=== PATIENT | female | born 1955 | race Caucasian/White ===

== ENCOUNTER 2024-06-23 15:35 | Observation (INO) ==
--- NOTE | 2024-06-23 16:50 | DR.GENAD ---
HPI Time Seen Time Seen by Provider: 06/23/24 16:49 PCP Primary Care Physician: Dr. Arce Complaint/Symptoms Chief Complaint:: Pt c/o generalized weakness and frequent falls. Pt c/o left hip pain. Pt was recently discharged from [facility] after 21 days of rehab. Pt returned to her brother's house to stay with him and reports that the brother moved her to a camper to stay alone in. Pt was found in the camper alone, naked, and covered in urine with pills spread all over the floor of the camper. Pt is noted to have redness to the back of the left upper arm and sacrum that pt states is due to her laying in urine. Pt states that she hasn't had a bath in 2 weeks. COVID-19 Coronavirus risk:travel/contact w/high risk person: No Has patient experienced Coronavirus symptoms: No Nurses notes reviewed Nurses Notes Review: Yes Source History Provided: Patient and EMS Mode of Arrival Mode of Arrival: Ambulatory Timing Onset of Chief Complaint: 06/23/24 PMH PMH Past Medical History: Yes Past Medical History: COPD, Dyslipidemia, Hypertension, Seizures and Sleep Apnea Past Surgical History: Yes Surgical History: , Hysterectomy, Ortho Surgery and Other Past Surgical History Comment: bladder tact Family History History of Family Medical Conditions: Yes Family Medical History: Diabetes Mellitus, Cancer, [place], Coronary Artery Disease and Hypertension Social History Does patient currently use any type of tobacco product: Yes Have you used tobacco products in the last 12 months: Yes Type of Tobacco Use: Cigarettes Does any household member use tobacco: No Alcohol Use: None Do you use any recreational Drugs:: No Lives With: Family Lives Where: Home Travel Risk Coronavirus risk:travel/contact w/high risk person: No Has patient experienced Coronavirus symptoms: No Infectious screening In the last 2 months have you had wt loss of >10#?: NO Have you had fever, night sweats or hemotysis?: No Have you traveled outside the country in the last 6 months?: No Isolation: Standard PE Vital Signs Vitals: Vital Signs Temperature 98.0 F Pulse Rate 105 Pulse Rate 117 Pulse Rate 110 Pulse Rate 115 Pulse Rate 126 Pulse Rate 128 Pulse Rate 124 Pulse Rate 140 Pulse Rate 129 Pulse Rate 130 Pulse Rate 128 Pulse Rate 125 Pulse Rate 121 Pulse Rate 120 Pulse Rate 117 Pulse Rate 121 Pulse Rate 113 Pulse Rate 121 Pulse Rate 112 Pulse Rate 120 Pulse Rate 117 Respiratory Rate 29 Respiratory Rate 28 Respiratory Rate 39 Respiratory Rate 41 Respiratory Rate 29 Respiratory Rate 43 Respiratory Rate 29 Respiratory Rate 35 Respiratory Rate 39 Respiratory Rate 43 Respiratory Rate 39 Respiratory Rate 30 Respiratory Rate 28 Respiratory Rate 46 Respiratory Rate 20 Respiratory Rate 24 Respiratory Rate 31 Respiratory Rate 28 Respiratory Rate 32 Respiratory Rate 20 Respiratory Rate 20 Respiratory Rate 22 Blood Pressure 96/53 Blood Pressure 98/56 Blood Pressure 82/54 Blood Pressure 82/54 Blood Pressure 107/58 Blood Pressure 107/58 Blood Pressure 115/58 Blood Pressure 113/57 Blood Pressure 135/57 Blood Pressure 127/59 Blood Pressure 118/81 Blood Pressure 124/81 Blood Pressure 124/81 O2 Sat by Pulse Oximetry 95 O2 Sat by Pulse Oximetry 96 O2 Sat by Pulse Oximetry 90 O2 Sat by Pulse Oximetry 91 O2 Sat by Pulse Oximetry 93 O2 Sat by Pulse Oximetry 93 O2 Sat by Pulse Oximetry 91 O2 Sat by Pulse Oximetry 88 O2 Sat by Pulse Oximetry 90 O2 Sat by Pulse Oximetry 90 O2 Sat by Pulse Oximetry 91 O2 Sat by Pulse Oximetry 93 O2 Sat by Pulse Oximetry 93 O2 Sat by Pulse Oximetry 90 O2 Sat by Pulse Oximetry 95 O2 Sat by Pulse Oximetry 95 O2 Sat by Pulse Oximetry 96 O2 Sat by Pulse Oximetry 95 O2 Sat by Pulse Oximetry 100 O2 Sat by Pulse Oximetry 100 O2 Sat by Pulse Oximetry 99 ROR Labs Reviewed 06/23/24 17:13 06/23/24 17:13 Laboratory: WBC 20.2 X10^3/uL (3.6-10.0) H 06/23/24 17:13 RBC 4.32 X10^6/uL (3.5-5.4) 06/23/24 17:13 Hgb 13.2 g/dL (12.0-16.0) 06/23/24 17:13 Hct 38.8 % (36.0-47.0) 06/23/24 17:13 MCV 89.9 fL (80.0-100.0) 06/23/24 17:13 MCH 30.4 pg (27.0-34.0) 06/23/24 17:13 MCHC 33.9 g/dL (33.0-35.0) 06/23/24 17:13 RDW 17.1 % (11.6-16.5) H 06/23/24 17:13 Plt Count 320 X10^3/uL (150.0-450.0) 06/23/24 17:13 MPV 8.3 fL (7.4-11.0) 06/23/24 17:13 Neut % (Auto) 87.0 % (42.0-75.0) H 06/23/24 17:13 Lymph % (Auto) 6.0 % (21.0-51.0) L 06/23/24 17:13 [place] % (Auto) 6.6 % (0.0-13.0) 06/23/24 17:13 Eos % (Auto) 0.0 % (0.9-2.9) L 06/23/24 17:13 Baso % (Auto) 0.4 % (0.2-1.0) 06/23/24 17:13 Neut # (Auto) 17.6 x10^3/uL (2.2-4.8) H 06/23/24 17:13 Lymph # (Auto) 1.2 X10^3/uL (1.3-2.9) L 06/23/24 17:13 [place] # (Auto) 1.3 x10^3/uL (0.3-0.8) H 06/23/24 17:13 Eos # (Auto) 0.0 x10^3/uL (0.0-0.2) 06/23/24 17:13 Baso # (Auto) 0.1 X10^3/uL (0.0-0.1) 06/23/24 17:13 Absolute Nucleated RBC 0.0 /100WBC 06/23/24 17:13 Sodium 131 mmol/L (136-145) L 06/23/24 17:13 Corrected Sodium TNP 06/23/24 17:13 Potassium 3.7 mmol/L (3.5-5.1) 06/23/24 17:13 Chloride 93 mmol/L (98-107) L 06/23/24 17:13 Carbon Dioxide 32.1 mmol/L (21-32) H 06/23/24 17:13 BUN 10 mg/dL (7-18) 06/23/24 17:13 Creatinine 0.61 mg/dL (0.55-1.02) 06/23/24 17:13 Est GFR (MDRD) Af Amer > 60 (>60) 06/23/24 17:13 Est GFR (MDRD) Non-Af > 60 (>60) 06/23/24 17:13 Glucose 90 mg/dL (65-99) 06/23/24 17:13 Lactic Acid 1.2 mmol/L (0.4-2.0) 06/23/24 18:02 Calcium 8.9 mg/dL (8.5-10.1) 06/23/24 17:13 Corrected Calcium 9.9 mg/dL (8.5-10.1) 06/23/24 17:13 Total Bilirubin 0.60 mg/dL (0.2-1.0) 06/23/24 17:13 AST 19 Units/L (15-37) 06/23/24 17:13 ALT 13 Units/L (12-78) 06/23/24 17:13 Alkaline Phosphatase 101 Units/L (46-116) 06/23/24 17:13 Total Protein 6.9 g/dL (6.4-8.2) 06/23/24 17:13 Albumin 2.8 g/dL (3.4-5.0) L 06/23/24 17:13 Globulin 4.1 g/dL (2.5-4.5) 06/23/24 17:13 Albumin/Globulin Ratio 0.7 Ratio (1.1-2.1) L 06/23/24 17:13 Specimen Type Catherized urine 06/23/24 18:55 Urine Color Yellow (YELLOW) 06/23/24 18:55 Urine Appearance Clear (CLEAR) 06/23/24 18:55 Urine pH 6.0 (5.0 - 8.0) 06/23/24 18:55 Ur Specific [place] 1.020 (1.000-1.030) 06/23/24 18:55 Urine Protein Negative (NEGATIVE) 06/23/24 18:55 Urine Glucose (UA) Negative (NEGATIVE) 06/23/24 18:55 Urine Ketones 2+ (NEGATIVE) 06/23/24 18:55 Urine Blood 1+ (NEGATIVE) 06/23/24 18:55 Urine Nitrite Negative (NEGATIVE) 06/23/24 18: Urine Bilirubin Negative (NEGATIVE) 06/23/24 18:55 Urine Urobilinogen Normal (NORMAL) 06/23/24 18:55 Ur Leukocyte Esterase 2+ (NEGATIVE) 06/23/24 18:55 Urine RBC None seen /HPF (0-3) 06/23/24 18:55 Urine WBC 20-30 /HPF (0-5) A 06/23/24 18:55 Ur Squamous Epith Cells Rare /HPF (NEGATIVE) 06/23/24 18:55 Urine Bacteria Negative /HPF (NEGATIVE) 06/23/24 18:55 Ur Culture Indicated? Yes/culture set up 06/23/24 18:55 Opioid Opioid Risk Tool Age (Edgar box if 16-45): No History of Preadolescent Sexual Abuse: No Total: 0 Total Score Risk Category: Low Risk Copyright: Aryan DERVIES predicting aberrant behaviors Discharge Plan Diagnosis Discharge Problem: Cellulitis of sacral region, Decubitus ulcer, UTI (urinary tract infection) Discharge Plan Patient Disposition: 01 HOME, SELF-CARE Condition: Stable Prescriptions: No Action atorvastatin 10 mg tablet 10 mg PO QDAY montelukast 10 mg tablet 10 mg PO QDAY PRN albuterol sulfate [Ventolin HFA] 90 mcg/actuation HFA aerosol inhaler 1 inh inhalation Q4H PRN potassium chloride 8 mEq Capsule, Extended Release 8 meq PO QDAY Qty: 30 0RF Rx Instructions: Take with Lasix furosemide [Lasix] 20 mg Tablet 20 mg PO QDAY Qty: 30 0RF carvedilol 6.25 mg Tablet 6.25 mg PO BID Qty: 60 0RF oxybutynin chloride 15 mg tablet extended release 24hr 30 mg PO DAILY pregabalin 150 mg capsule 150 mg PO TID Qty: 30 0RF hydrochlorothiazide 12.5 mg capsule 12.5 mg PO QDAY lisinopril 30 mg tablet 30 mg PO QDAY Trelegy Ellipta 200-62.5-25 mcg blister with device 1 ea inhalation QDAY Health Concerns: Post Hospitalization: new medications and changes needed to prevent readmission or further decline. Pt educated and given instructions on all concerns. Plan of Treatment: Continue with present treatment and follow up plan. Pt is to keep follow up appointment as instructed and take medications as ordered. Orders to Discharge Patient Discharge Orders: Transfer (Routine); Ordered 06/23/24 Ordered By: NIDIA HARRIS Follow ups/Referrals Follow ups/Referrals: [facility]FD,None [STAFF PHYSICIAN] - 3 days Instructions Stand Alone Forms: Find Help Web Site, Post Hospital Follow Up Care
[2024-06-23 17:22] LABS: HEMOGLOBIN 13.2 g/dL (12.0-16.0)
[2024-06-23 17:28] LABS: BASOPHILS # (AUTO) 0.1 X10^3/uL (0.0-0.1); BASOPHILS % (AUTO) 0.4 % (0.2-1.0); HEMATOCRIT 38.8 % (36.0-47.0); LYMPHOCYTES # (AUTO) 1.2 X10^3/uL (1.3-2.9); MEAN CORPUSCULAR HEMOGLOBIN 30.4 pg (27.0-34.0); MEAN CORPUSCULAR HGB CONC 33.9 g/dL (33.0-35.0); MEAN CORPUSCULAR VOLUME 89.9 fL (80.0-100.0); MEAN PLATELET VOLUME 8.3 fL (7.4-11.0); MONOCYTES # (AUTO) 1.3 x10^3/uL (0.3-0.8); MONOCYTES % (AUTO) 6.6 % (0.0-13.0); NEUTROPHILS # (AUTO) 17.6 x10^3/uL (2.2-4.8); PLATELET COUNT 320 X10^3/uL (150.0-450.0); RED BLOOD COUNT 4.32 X10^6/uL (3.5-5.4); RED CELL DISTRIBUTION WIDTH 17.1 % (11.6-16.5); WHITE BLOOD COUNT 20.2 X10^3/uL (3.6-10.0)
[2024-06-23] MEDS: TYLENOL 500 MG TAB EXTRA STRENGTH PO ONE ×2 (17:33→22:17)
[2024-06-23 17:35] LABS: ALANINE AMINOTRANSFERASE 13 Units/L (12-78); ALBUMIN 2.8 g/dL (3.4-5.0); ALKALINE PHOSPHATASE 101 Units/L (46-116); ASPARTATE AMINO TRANSFERASE 19 Units/L (15-37); BLOOD UREA NITROGEN 10 mg/dL (7-18); CALCIUM 8.9 mg/dL (8.5-10.1); CARBON DIOXIDE 32.1 mmol/L (21-32); CHLORIDE 93 mmol/L (98-107); COR CA(FOR HYPOALB) 9.9 mg/dL (8.5-10.1); CREATININE 0.61 mg/dL (0.55-1.02); GLUCOSE 90 mg/dL (65-99); POTASSIUM 3.7 mmol/L (3.5-5.1); SODIUM 131 mmol/L (136-145); TOTAL PROTEIN 6.9 g/dL (6.4-8.2); eGFR NON BLACK RACES > 60 (>60)
--- NOTE | 2024-06-23 17:39 | CT ---
EXAM: HEAD CT WITHOUT INTRAVENOUS CONTRASTHISTORY: Generalized weakness and frequent falls. Left hip pain.TECHNIQUE: Spiral axial CT images are obtained through the brain without the administration of intravenous contrast. Additional sagittal and coronal reformatted images are reconstructed.COMPARISON: None available.FINDINGS:There are mild patchy parenchymal lucencies within the white matter tracks of the centrum semiovale, consistent with chronic sequela of atherosclerotic microvascular ischemic disease. Atherosclerosis of the carotid siphons is seen. Consider follow-up MRA as clinically warranted. Nonspecific pineal gland calcification is seen.There is diffuse cerebral cortical atrophy. The centrum semiovale, basal ganglia, cerebellum, and brainstem are otherwise grossly unremarkable for a noncontrast CT scan. There is no acute intracranial hemorrhage, gross acute infarction, mass lesion, midline shift, or hydrocephalus seen. No extra-axial mass or abnormal fluid collection noted.The calvarium is intact. The partially imaged paranasal sinuses, middle ear cavities and mastoid air cells are clear.IMPRESSION:1. Mild chronic microvascular ischemic disease, but no discernible acute infarction seen. Consider followup MRI with diffusion-weighted imaging to rule out occult acute infarction if clinically warranted.2. Atherosclerosis of the carotid siphons is seen. Consider follow-up MRA as clinically warranted.3. No skull fracture, intracranial hemorrhage, mass lesion, midline shift, or hydrocephalus seen.THIS IS AN ELECTRONICALLY VERIFIED FINAL [id number]/2024 5:36 PM - Electronically signed by Saurabh Acosta MD
--- NOTE | 2024-06-23 17:51 | CT ---
EXAM: CT OF THE PELVIS WITHOUT CONTRASTHISTORY: Generalized weakness. Frequent falls. Left hip pain.TECHNIQUE: Spiral axial CT images are obtained through the pelvis, hips, and coccygeal regions. Sagittal and coronal reformatted images are reconstructed.COMPARISON: None available.FINDINGS:The patient is status post ORIF of a left femoral intertrochanteric fracture with medullary nette placement; femoral head component of the hip prosthesis demonstrates chronic appearing cephalad displacement through the weightbearing aspect of the femoral head into the weightbearing aspect of the bony acetabulum (by approximately 1.3 cm deep) with approximately 2.7 cm transverse by 1.9 cm deep by 4 cm AP, chronic, acetabular articular surface bone erosion/scalloping; ununited intertrochanteric fracture moieties (with up to 9.2 mm medial step-off and approximately 7.6 mm posterior step-off of the distal fracture moiety). Coronal image 25-42; sagittal image 19.There is no acute fracture seen. No focal bony erosion is seen. There is severe diffuse osteopenia (presumed osteoporosis). There is an approximately 2.1 cm x 1.4 cm x 1.4 cm sclerotic lesion within the right iliac bone; nonspecific finding; DDx includes bone island and sclerotic metastatic lesion in the appropriate clinical setting. Axial image 23; coronal image 44; sagittal image 7-31.No joint subluxation or dislocation is seen. There is no evidence for osteoarthritis or avascular necrosis of the hips.There is chronic appearing mild (less than 50%) compression fracture of the superior endplate of the L4 vertebral body, without gross bony retropulsion. Sagittal image 59. There is severe aortoiliac atherosclerosis.There is an approximately 6.4 cm transverse by 4.7 cm CC right anterior lower pelvic wall hernia containing an uncomplicated loop of small bowel. Axial image 48; sagittal image 73. Abundant fecal material is seen within the visualized large bowel loops and rectum can consistent with severe constipation. Status post hysterectomy.IMPRESSION:1. Status post ORIF of a left femoral intertrochanteric fracture with medullary nette placement.2. Femoral head component of the hip prosthesis demonstrates chronic appearing cephalad displacement through the weightbearing aspect of the femoral head into the weightbearing aspect of the bony acetabulum (by approximately 1.3 cm deep) with approximately 2.7 cm transverse by 1.9 cm deep by 4 cm AP, chronic, acetabular articular surface bone erosion/scalloping.3. Ununited intertrochanteric fracture moieties (with up to 9.2 mm medial step-off and approximately 7.6 mm posterior step-off of the distal fracture moiety). Coronal image 25-42; sagittal image 19.4. Severe diffuse osteopenia; presumed osteoporosis.5. Chronic appearing mild (less than 50%) compression fracture of the superior endplate of the L4 vertebral body, without gross bony retropulsion. Sagittal image 59.5. Approximately 6.4 cm transverse by 4.7 cm CC right anterior lower pelvic wall hernia containing an uncomplicated loop of small bowel. Axial image 48; sagittal image 73.6. Abundant fecal material is seen within the visualized large bowel loops and rectum can consistent with severe constipation.THIS IS AN ELECTRONICALLY VERIFIED FINAL [id number]/2024 5:48 PM - Electronically signed by Saurabh Acosta MD
[2024-06-23 19:07] LABS: BILIRUBIN,URINE NEGATIVE (NEGATIVE); BLOOD/HEMOGLOBIN,URINE 1+ (NEGATIVE); GLUCOSE, URINE NEGATIVE (NEGATIVE); KETONES,URINE 2+ (NEGATIVE); LEUKOCYTE ESTERASE ,URINE 2+ (NEGATIVE); NITRITES,URINE NEGATIVE (NEGATIVE); PROTEIN,URINE NEGATIVE (NEGATIVE); UROBILINOGEN,URINE NORMAL (NORMAL)
[2024-06-23 19:14] LABS: APPEARANCE,URINE CLEAR (CLEAR); COLOR,URINE YELLOW (YELLOW)
[2024-06-23 19:15] LABS: BACTERIA,URINE NEGATIVE /HPF (NEGATIVE); RBC,URINE NONE SEEN /HPF (0-3); SQUAMOUS EPITHELIAL CELL,UR RARE /HPF (NEGATIVE)
[2024-06-23] MEDS ORDERED: NS 1,000 ML IV 1,000 ML ONE (19:44)
[2024-06-23] MEDS: NS 1,000 ML IV 1,000 ML IV ONE (19:53)
[2024-06-23] MEDS: ZOSYN VIAL 3.375 GRAMS 3.375 G in NS 100 ML IV 100 ML IV ONE (20:01)
[2024-06-23] MEDS: NS 250 ML IV 25 ML IV PRN (20:02)
[2024-06-23] MEDS ORDERED: NS 250 ML IV 25 ML IV PRN (21:00)
[2024-06-23] MEDS: NS 1,000 ML IV 1,000 ML IV SCH (21:25)
[2024-06-23] MEDS: TYLENOL 325 MG TAB PO PRN (22:14)
[2024-06-23] MEDS: ZOSYN VIAL 3.375 GRAMS 3.375 G in NS 100 ML IV 100 ML IV SCH (22:15)
[2024-06-23] MEDS: VANCOMYCIN IV *PREMIX 1 G/200 ML BAG 1 G/200 ML PIGGYBACK IV ONE ×2 (22:52→23:13)
[2024-06-24 04:31] LABS: BASOPHILS % (AUTO) 0.2 % (0.2-1.0); EOSINOPHILS % (AUTO) 0.2 % (0.9-2.9); HEMATOCRIT 35.7 % (36.0-47.0); HEMOGLOBIN 11.9 g/dL (12.0-16.0); LYMPHOCYTES # (AUTO) 1.7 X10^3/uL (1.3-2.9); LYMPHOCYTES % (AUTO) 13.3 % (21.0-51.0); MEAN CORPUSCULAR HEMOGLOBIN 29.8 pg (27.0-34.0); MEAN CORPUSCULAR HGB CONC 33.3 g/dL (33.0-35.0); MEAN CORPUSCULAR VOLUME 89.5 fL (80.0-100.0); MEAN PLATELET VOLUME 8.4 fL (7.4-11.0); MONOCYTES # (AUTO) 1.3 x10^3/uL (0.3-0.8); MONOCYTES % (AUTO) 10.1 % (0.0-13.0); NEUTROPHILS # (AUTO) 9.7 x10^3/uL (2.2-4.8); NEUTROPHILS % (AUTO) 76.2 % (42.0-75.0); PLATELET COUNT 305 X10^3/uL (150.0-450.0); RED BLOOD COUNT 3.99 X10^6/uL (3.5-5.4); RED CELL DISTRIBUTION WIDTH 16.9 % (11.6-16.5); WHITE BLOOD COUNT 12.8 X10^3/uL (3.6-10.0)
[2024-06-24 04:44] LABS: ALANINE AMINOTRANSFERASE 12 Units/L (12-78); ALBUMIN 2.6 g/dL (3.4-5.0); ALKALINE PHOSPHATASE 89 Units/L (46-116); ASPARTATE AMINO TRANSFERASE 18 Units/L (15-37); BLOOD UREA NITROGEN 8 mg/dL (7-18); CALCIUM 8.3 mg/dL (8.5-10.1); CARBON DIOXIDE 28.5 mmol/L (21-32); CHLORIDE 98 mmol/L (98-107); COR CA(FOR HYPOALB) 9.4 mg/dL (8.5-10.1); CREATININE 0.45 mg/dL (0.55-1.02); GLUCOSE 67 mg/dL (65-99); MAGNESIUM 1.8 mg/dL (2.0-2.9); POTASSIUM 3.6 mmol/L (3.5-5.1); SODIUM 134 mmol/L (136-145); TOTAL PROTEIN 6.3 g/dL (6.4-8.2); eGFR NON BLACK RACES > 60 (>60)
--- NOTE | 2024-06-24 06:05 | RAD ---
EXAM:CHEST, 1 VIEWHISTORY:c/o generalized weakness and frequent falls. Pt c/o left hip pain.;COMPARISON:05/21/2024FINDINGS:The cardiomediastinal silhouette is stable.No acute airspace disease. No pneumothorax or effusion.No acute osseous abnormality.IMPRESSION:No acute cardiopulmonary disease.THIS IS AN ELECTRONICALLY VERIFIED FINAL [id number]/2024 6:01 AM - Electronically signed by Donavon Rivas MD
[2024-06-24] MEDS ORDERED: CONSULT PHARMACY - POTASSIUM & MAGNESIUM XX SCH (07:00)
[2024-06-24] MEDS: MAG-OX TAB PO SCH (08:06)
[2024-06-24] MEDS: K-DUR TAB 20 MEQ PO SCH (08:06)
[2024-06-24] MEDS: PULMICORT NEB TX 0.5 MG NEB SCH (09:09)
[2024-06-24] MEDS: PROVENTIL NEB TX 0.083% 2.5MG/ 3ML NEB PRN (09:09)
[2024-06-24] MEDS: VANCOMYCIN HCL 1 G in D5W 250 ML IV 250 ML IV SCH (09:24)
[2024-06-24] MEDS: HYDROCHLOROTHIAZIDE 12.5 MG CAP PO SCH (11:06)
[2024-06-24] MEDS ORDERED: MILK OF MAGNESIA PO PRN (11:09)
--- NOTE | 2024-06-24 11:11 | DR.H&P ---
H&P History & Physical for Day of: H&P Date: 06/24/24 Chief Complaint Chief Complaint: failure to thrive, fall History of Present Illness History of Present Illness: Ms Wilson is a 68y/o female with a PMH of COPD, HTN, HLD, DYLON presented after having a fall and was found in very poor condition. She was recently discharged from rehab and was staying at her brother's house. He moved her to a camper and patient was not able to take care of herself. She was found covered in urine with all her medicines on the floor. She states she is not able to walk due to weakness. She tried to call home health but states she was not able to get a hold of anyone. ER work up showed low Mag, UA suggestive of infection and sacral pressure injury. She was admitted for FTT, cellulitis, UTI and electrolyte imbalance. She was started on IV Vancomycin and Zosyn. Labs/imaging reviewed: -WBC 12.8 WBC 11.9 K 3.6 Mag 1.8 -Urine Cx pending -Blood Cx pending -CXR: no acute process -Pelvis CT reviewed Plan: Admit to med-surg. Continue IV antibiotics and hydration. Replace electrolytes as per protocol. BP low-normal, hold anti-hypertensives for now. Follow pending cultures. Continue wound care, position changes prn. Resume home medications. Add nebs. PT as tolerated. Monitor AM labs/imaging. Past Medical History Past Medical History: COPD, Dyslipidemia, Hypertension, Seizures and Sleep Apnea Past Surgical History Surgical History: , Hysterectomy and Ortho Surgery Family History Family Medical History: Diabetes Mellitus, Cancer, [place], Coronary Artery Disease and Hypertension Social History Does patient currently use any type of tobacco product: Yes Have you used tobacco products in the last 12 months: Yes Type of Tobacco Use: Cigarettes How many years tobacco product used: 10 Does any household member use tobacco: No Alcohol Use: None Drug Use: None Medications Home Medications: Home Medications Medication Instructions Recorded Confirmed Type albuterol sulfate 90 mcg/actuation 1 inh inhalation Q4H PRN 05/11/24 06/23/24 History aerosol inhaler (Ventolin HFA) atorvastatin 10 mg tablet 10 mg PO QDAY 05/11/24 06/23/24 History montelukast 10 mg tablet 10 mg PO QDAY PRN 05/11/24 06/23/24 History oxybutynin chloride 15 mg 30 mg PO DAILY 05/25/24 06/23/24 History tablet,extended release 24 hr fluticasone fur. 200 mcg-umeclid 1 ea inhalation QDAY 06/23/24 06/23/24 History 62.5 mcg-vilant 25 mcg inhalat.powder (Trelegy Ellipta) hydrochlorothiazide 12.5 mg capsule 12.5 mg PO QDAY 06/23/24 06/23/24 History lisinopril 30 mg tablet 30 mg PO QDAY 06/23/24 06/23/24 History Allergies Allergies Allergy/AdvReac Type Severity Reaction Status Date / Time No Known Allergies Allergy Verified 06/23/24 15:59 Labs 06/24/24 04:06 06/24/24 04:06 Labs: 06/23/24 18:55 Urine,Catheterized Urine Culture - Preliminary Laboratory WBC 12.8 X10^3/uL (3.6-10.0) H 06/24/24 04:06 RBC 3.99 X10^6/uL (3.5-5.4) 06/24/24 04:06 Hgb 11.9 g/dL (12.0-16.0) L 06/24/24 04:06 Hct 35.7 % (36.0-47.0) L 06/24/24 04:06 MCV 89.5 fL (80.0-100.0) 06/24/24 04:06 MCH 29.8 pg (27.0-34.0) 06/24/24 04:06 MCHC 33.3 g/dL (33.0-35.0) 06/24/24 04:06 RDW 16.9 % (11.6-16.5) H 06/24/24 04:06 Plt Count 305 X10^3/uL (150.0-450.0) 06/24/24 04:06 MPV 8.4 fL (7.4-11.0) 06/24/24 04:06 Neut % (Auto) 76.2 % (42.0-75.0) H 06/24/24 04:06 Lymph % (Auto) 13.3 % (21.0-51.0) L 06/24/24 04:06 [place] % (Auto) 10.1 % (0.0-13.0) 06/24/24 04:06 Eos % (Auto) 0.2 % (0.9-2.9) L 06/24/24 04:06 Baso % (Auto) 0.2 % (0.2-1.0) 06/24/24 04:06 Neut # (Auto) 9.7 x10^3/uL (2.2-4.8) H 06/24/24 04:06 Lymph # (Auto) 1.7 X10^3/uL (1.3-2.9) 06/24/24 04:06 [place] # (Auto) 1.3 x10^3/uL (0.3-0.8) H 06/24/24 04:06 Eos # (Auto) 0.0 x10^3/uL (0.0-0.2) 06/24/24 04:06 Baso # (Auto) 0.0 X10^3/uL (0.0-0.1) 06/24/24 04:06 Absolute Nucleated RBC 0.0 /100WBC 06/24/24 04:06 Sodium 134 mmol/L (136-145) L 06/24/24 04:06 Corrected Sodium TNP 06/24/24 04:06 Potassium 3.6 mmol/L (3.5-5.1) 06/24/24 04:06 Chloride 98 mmol/L (98-107) 06/24/24 04:06 Carbon Dioxide 28.5 mmol/L (21-32) 06/24/24 04:06 BUN 8 mg/dL (7-18) 06/24/24 04:06 Creatinine 0.45 mg/dL (0.55-1.02) L 06/24/24 04:06 Est GFR (MDRD) Af Amer > 60 (>60) 06/24/24 04:06 Est GFR (MDRD) Non-Af > 60 (>60) 06/24/24 04:06 Glucose 67 mg/dL (65-99) 06/24/24 04:06 Lactic Acid 1.2 mmol/L (0.4-2.0) 06/23/24 18:02 Calcium 8.3 mg/dL (8.5-10.1) L 06/24/24 04:06 Corrected Calcium 9.4 mg/dL (8.5-10.1) 06/24/24 04:06 Magnesium 1.8 mg/dL (2.0-2.9) L 06/24/24 04:06 Total Bilirubin 0.60 mg/dL (0.2-1.0) 06/24/24 04:06 AST 18 Units/L (15-37) 06/24/24 04:06 ALT 12 Units/L (12-78) 06/24/24 04:06 Alkaline Phosphatase 89 Units/L (46-116) 06/24/24 04:06 Total Protein 6.3 g/dL (6.4-8.2) L 06/24/24 04:06 Albumin 2.6 g/dL (3.4-5.0) L 06/24/24 04:06 Globulin 3.7 g/dL (2.5-4.5) 06/24/24 04:06 Albumin/Globulin Ratio 0.7 Ratio (1.1-2.1) L 06/24/24 04:06 Specimen Type Catherized urine 06/23/24 18:55 Urine Color Yellow (YELLOW) 06/23/24 18:55 Urine Appearance Clear (CLEAR) 06/23/24 18:55 Urine pH 6.0 (5.0 - 8.0) 06/23/24 18:55 Ur Specific [place] 1.020 (1.000-1.030) 06/23/24 18:55 Urine Protein Negative (NEGATIVE) 06/23/24 18:55 Urine Glucose (UA) Negative (NEGATIVE) 06/23/24 18:55 Urine Ketones 2+ (NEGATIVE) 06/23/24 18:55 Urine Blood 1+ (NEGATIVE) 06/23/24 18:55 Urine Nitrite Negative (NEGATIVE) 06/23/24 18:55 Urine Bilirubin Negative (NEGATIVE) 06/23/24 18:55 Urine Urobilinogen Normal (NORMAL) 06/23/24 18:55 Ur Leukocyte Esterase 2+ (NEGATIVE) 06/23/24 18:55 Urine RBC None seen /HPF (0-3) 06/23/24 18:55 Urine WBC 20-30 /HPF (0-5) A 06/23/24 18:55 Ur Squamous Epith Cells Rare /HPF (NEGATIVE) 06/23/24 18:55 Urine Bacteria Negative /HPF (NEGATIVE) 06/23/24 18:55 Ur Culture Indicated? Yes/culture set up 06/23/24 18:55 Review of Systems Constitutional: Weakness Eyes: No Symptoms Reported ENT: No Symptoms Reported Respiratory: Shortness of Breath Cardiovascular: No Symptoms Reported Gastrointestinal: No Symptoms Reported Genitourinary: No Symptoms Reported Musculoskeletal: Back Pain and Leg Pain Skin: Lesions and Wound Neurological: No Symptoms Reported Physical Exam Vital Signs: Vital Signs Temperature 98.2 F Temperature 98.2 F Temperature 98.2 F Pulse Rate [Brachial] 80 Pulse Rate [Right Radial] 74 Pulse Rate [Right Radial] 74 Pulse Rate 83 Respiratory Rate 19 Respiratory Rate 20 Respiratory Rate 20 Blood Pressure [Right Arm] 119/56 Blood Pressure [Right Arm] 127/60 Blood Pressure [Right Arm] 127/60 O2 Sat by Pulse Oximetry 93 O2 Sat by Pulse Oximetry 92 O2 Sat by Pulse Oximetry 92 O2 Sat by Pulse Oximetry 2 Oriented: Normal Eyes: Normal Throat: Normal Respiratory: Diminished Throughout Cardiovascular: Normal Auscultation: Bowel Sounds: Normal Palpation: Normal Tenderness: Normal Skin: Rash, Bruising and Other (sacral pressure injury, no open wound or drainage. Surrounding erythema ) Musculoskeletal: Leg, Back:Paraspinous and Motor Deficit Psychiatric: Normal Mood Description: Calm Affect: Normal Speech Pattern: Clear and Appropriate Assessment/Plan (1) Cellulitis of sacral region: Status: Acute (2) Decubitus ulcer: Qualifiers: Laterality: unspecified laterality Pressure injury location: buttock Pressure injury stage: stage 1 Qualified Code(s): L89.301 - Pressure ulcer of unspecified buttock, stage 1 Status: Chronic (3) UTI (urinary tract infection): Qualifiers: Hematuria presence: without hematuria Urinary tract infection type: acute cystitis Qualified Code(s): N30.00 - Acute cystitis without hematuria Status: Acute (4) Dehydration: Status: Acute (5) Hypomagnesemia: Status: Acute (6) Chronic respiratory failure: Qualifiers: Respiratory failure complication: hypoxia and hypercapnia Qualified Code(s): J96.11 - Chronic respiratory failure with hypoxia; J96.12 - Chronic respiratory failure with hypercapnia Status: Chronic (7) Generalized weakness: Status: Acute (8) Adult failure to thrive: Status: Chronic Review H&P Reviewed: Yes Patient was examined?: Yes
[2024-06-24] MEDS: ROBITUSSIN (PLAIN) PO PRN (11:26)
[2024-06-24] MEDS: COLACE CAP 100 MG PO SCH (11:27)
[2024-06-24] MEDS: LYRICA CAP 150 mg PO SCH (14:10)
[2024-06-24] MEDS: DUONEB 0.5 MG/3 MG (3 mL) NEB SCH (14:30)
[2024-06-24] MEDS: LIPITOR TAB 10 MG PO SCH (20:59)
[2024-06-25 04:30] LABS: BASOPHILS # (AUTO) 0.1 X10^3/uL (0.0-0.1); BASOPHILS % (AUTO) 0.9 % (0.2-1.0); EOSINOPHILS # (AUTO) 0.2 x10^3/uL (0.0-0.2); EOSINOPHILS % (AUTO) 1.6 % (0.9-2.9); HEMATOCRIT 31.9 % (36.0-47.0); HEMOGLOBIN 10.8 g/dL (12.0-16.0); LYMPHOCYTES # (AUTO) 1.7 X10^3/uL (1.3-2.9); LYMPHOCYTES % (AUTO) 17.3 % (21.0-51.0); MEAN CORPUSCULAR HEMOGLOBIN 30.6 pg (27.0-34.0); MEAN CORPUSCULAR VOLUME 90.2 fL (80.0-100.0); MEAN PLATELET VOLUME 8.3 fL (7.4-11.0); MONOCYTES % (AUTO) 10.1 % (0.0-13.0); NEUTROPHILS # (AUTO) 6.9 x10^3/uL (2.2-4.8); NEUTROPHILS % (AUTO) 70.1 % (42.0-75.0); PLATELET COUNT 272 X10^3/uL (150.0-450.0); RED BLOOD COUNT 3.54 X10^6/uL (3.5-5.4); RED CELL DISTRIBUTION WIDTH 17.5 % (11.6-16.5); WHITE BLOOD COUNT 9.8 X10^3/uL (3.6-10.0)
[2024-06-25 04:46] LABS: ALANINE AMINOTRANSFERASE 11 Units/L (12-78); ALBUMIN 2.2 g/dL (3.4-5.0); ALKALINE PHOSPHATASE 76 Units/L (46-116); ASPARTATE AMINO TRANSFERASE 14 Units/L (15-37); BLOOD UREA NITROGEN 7 mg/dL (7-18); CARBON DIOXIDE 32.7 mmol/L (21-32); CHLORIDE 101 mmol/L (98-107); COR CA(FOR HYPOALB) 9.4 mg/dL (8.5-10.1); CREATININE 0.48 mg/dL (0.55-1.02); GLUCOSE 93 mg/dL (65-99); MAGNESIUM 1.8 mg/dL (2.0-2.9); POTASSIUM 3.7 mmol/L (3.5-5.1); SODIUM 137 mmol/L (136-145); TOTAL PROTEIN 5.7 g/dL (6.4-8.2); eGFR NON BLACK RACES > 60 (>60)
[2024-06-25] MEDS ORDERED: CONSULT PHARMACY - POTASSIUM & MAGNESIUM XX SCH (05:00)
[2024-06-25] MEDS: OXYBUTYNIN CHLORIDE ER PO SCH (08:31)
[2024-06-25] MEDS: K-DUR TAB 20 MEQ PO SCH (09:45)
[2024-06-25] MEDS: MAG-OX TAB PO SCH (09:45)
--- NOTE | 2024-06-25 13:27 | NOTE.SOAP ---
Soap Note Note for Day of Date of Exam: 06/25/24 Subjective Data Subjective Data: Patient seen with nurse for a.m. rounds. Still reports weakness. Reports she has not been steady on her feet ever since a fall months ago that required a left hip repair with IM nail. Since that time her left leg is reportedly 2 inches shorter than her right and she has been unstable. Nurses deny any acute issues today. Objective Data Objective Data: DBD, WN, elderly female in NAD. Heart regular rate and rhythm. Lungs clear. Speech is strong. Mood affect appropriate. Head NCAT. Well-healed surgical scars of the left lateral thigh. Assessment Assessment: 1. Cellulitis of sacral region with decubitus ulcer. Continue current. 2. UTI, acute. Continue current. 3. CHELSEA with electrolyte derangements. Continue IV fluids. Rise in creatinine greater than 30%, but resolved now. 4. Adult failure to thrive. Continue supportive care. Patient likely unable to live alone at this time given her balance issues with the leg length discrepancy. Need to work with her and family on a safe discharge plan
[2024-06-25 20:12] LABS: CREATININE 0.52 mg/dL (0.55-1.02); VANCOMYCIN,TROUGH 11.3 ug/mL (15-20)
[2024-06-26 05:42] LABS: BASOPHILS # (AUTO) 0.1 X10^3/uL (0.0-0.1); BASOPHILS % (AUTO) 0.8 % (0.2-1.0); EOSINOPHILS # (AUTO) 0.3 x10^3/uL (0.0-0.2); EOSINOPHILS % (AUTO) 2.6 % (0.9-2.9); HEMATOCRIT 35.9 % (36.0-47.0); HEMOGLOBIN 12.1 g/dL (12.0-16.0); LYMPHOCYTES # (AUTO) 1.9 X10^3/uL (1.3-2.9); LYMPHOCYTES % (AUTO) 19.2 % (21.0-51.0); MEAN CORPUSCULAR HEMOGLOBIN 30.6 pg (27.0-34.0); MEAN CORPUSCULAR HGB CONC 33.8 g/dL (33.0-35.0); MEAN CORPUSCULAR VOLUME 90.6 fL (80.0-100.0); MEAN PLATELET VOLUME 8.4 fL (7.4-11.0); MONOCYTES # (AUTO) 0.9 x10^3/uL (0.3-0.8); MONOCYTES % (AUTO) 9.6 % (0.0-13.0); NEUTROPHILS # (AUTO) 6.7 x10^3/uL (2.2-4.8); NEUTROPHILS % (AUTO) 67.8 % (42.0-75.0); PLATELET COUNT 314 X10^3/uL (150.0-450.0); RED BLOOD COUNT 3.96 X10^6/uL (3.5-5.4); WHITE BLOOD COUNT 9.9 X10^3/uL (3.6-10.0)
[2024-06-26 05:48] LABS: ALANINE AMINOTRANSFERASE 11 Units/L (12-78); ALBUMIN 2.4 g/dL (3.4-5.0); ALKALINE PHOSPHATASE 106 Units/L (46-116); ASPARTATE AMINO TRANSFERASE 14 Units/L (15-37); BLOOD UREA NITROGEN 3 mg/dL (7-18); CALCIUM 8.3 mg/dL (8.5-10.1); CARBON DIOXIDE 34.6 mmol/L (21-32); CHLORIDE 100 mmol/L (98-107); COR CA(FOR HYPOALB) 9.6 mg/dL (8.5-10.1); CREATININE 0.43 mg/dL (0.55-1.02); GLUCOSE 99 mg/dL (65-99); MAGNESIUM 1.9 mg/dL (2.0-2.9); POTASSIUM 3.7 mmol/L (3.5-5.1); SODIUM 139 mmol/L (136-145); TOTAL PROTEIN 6.4 g/dL (6.4-8.2); eGFR NON BLACK RACES > 60 (>60)
[2024-06-26 08:29] VITALS: BMI 25.3
[2024-06-26] MEDS: MAG-OX TAB PO SCH (08:30)
[2024-06-26] MEDS: K-DUR TAB 20 MEQ PO SCH (08:31)
[2024-06-26] MEDS: ULTRAM PO PRN (10:35)
[2024-06-26] MEDS: ZyrTEC TAB 10 MG PO SCH (13:26)
[2024-06-26] MEDS: CONSULT PHARMACY - POTASSIUM & MAGNESIUM XX SCH (17:44)
--- NOTE | 2024-06-26 18:30 | NOTE.SOAP ---
Soap Note Note for Day of Date of Exam: 06/26/24 Subjective Data Subjective Data: AM rounds with nurse. Resting comfortably. No overnight events. Still pending discharge planning with CM and PT. Objective Data Objective Data: WD, WN, elderly female in NAD. Heart regular rate and rhythm. Lungs clear. Speech is strong. Mood affect appropriate. Head NCAT. Well-healed surgical scars of the left lateral thigh. Assessment Assessment: 1. Cellulitis of sacral region with decubitus ulcer. No changes today. 2. UTI, acute. Continue current. 3. CHELSEA with electrolyte derangements. Resolved. 4. Adult failure to thrive. Continue supportive care. Patient likely unable to live alone at this time given her balance issues with the leg length discrepancy. Need to work with her and family on a safe discharge plan
[2024-06-26] MEDS: COLACE CAP 100 MG PO SCH (21:01)
[2024-06-27 05:36] LABS: BASOPHILS % (AUTO) 0.4 % (0.2-1.0); EOSINOPHILS # (AUTO) 0.4 x10^3/uL (0.0-0.2); EOSINOPHILS % (AUTO) 3.4 % (0.9-2.9); HEMOGLOBIN 12.2 g/dL (12.0-16.0); LYMPHOCYTES # (AUTO) 2.1 X10^3/uL (1.3-2.9); LYMPHOCYTES % (AUTO) 19.5 % (21.0-51.0); MEAN CORPUSCULAR HEMOGLOBIN 30.8 pg (27.0-34.0); MEAN CORPUSCULAR VOLUME 90.6 fL (80.0-100.0); MEAN PLATELET VOLUME 7.9 fL (7.4-11.0); MONOCYTES % (AUTO) 9.8 % (0.0-13.0); NEUTROPHILS # (AUTO) 7.1 x10^3/uL (2.2-4.8); NEUTROPHILS % (AUTO) 66.9 % (42.0-75.0); PLATELET COUNT 322 X10^3/uL (150.0-450.0); RED BLOOD COUNT 3.97 X10^6/uL (3.5-5.4); RED CELL DISTRIBUTION WIDTH 17.1 % (11.6-16.5); WHITE BLOOD COUNT 10.6 X10^3/uL (3.6-10.0)
[2024-06-27 05:51] LABS: ALANINE AMINOTRANSFERASE 14 Units/L (12-78); ALBUMIN 2.3 g/dL (3.4-5.0); ALKALINE PHOSPHATASE 93 Units/L (46-116); ASPARTATE AMINO TRANSFERASE 12 Units/L (15-37); BLOOD UREA NITROGEN 6 mg/dL (7-18); CALCIUM 8.6 mg/dL (8.5-10.1); CARBON DIOXIDE 38.4 mmol/L (21-32); CHLORIDE 97 mmol/L (98-107); CREATININE 0.47 mg/dL (0.55-1.02); GLUCOSE 109 mg/dL (65-99); MAGNESIUM 1.8 mg/dL (2.0-2.9); POTASSIUM 4.1 mmol/L (3.5-5.1); SODIUM 136 mmol/L (136-145); TOTAL PROTEIN 6.5 g/dL (6.4-8.2); eGFR NON BLACK RACES > 60 (>60)
[2024-06-27] MEDS ORDERED: CONSULT PHARMACY - POTASSIUM & MAGNESIUM XX SCH (06:00)
[2024-06-27 09:04] LABS: CREATININE 0.41 mg/dL (0.55-1.02); VANCOMYCIN,TROUGH 11.1 ug/mL (15-20)
[2024-06-27] MEDS: MAG-OX TAB PO SCH (09:43)
[2024-06-27] MEDS: VIBRAMYCIN PO SCH (09:44)
[2024-06-27] MEDS ORDERED: BUTT CREAM (COMPOUND) TOP PRN (19:40)
[2024-06-28 06:17] LABS: BASOPHILS # (AUTO) 0.1 X10^3/uL (0.0-0.1); BASOPHILS % (AUTO) 0.5 % (0.2-1.0); EOSINOPHILS # (AUTO) 0.4 x10^3/uL (0.0-0.2); EOSINOPHILS % (AUTO) 4.1 % (0.9-2.9); HEMATOCRIT 36.3 % (36.0-47.0); HEMOGLOBIN 12.2 g/dL (12.0-16.0); LYMPHOCYTES # (AUTO) 1.7 X10^3/uL (1.3-2.9); LYMPHOCYTES % (AUTO) 16.6 % (21.0-51.0); MEAN CORPUSCULAR HEMOGLOBIN 30.5 pg (27.0-34.0); MEAN CORPUSCULAR HGB CONC 33.5 g/dL (33.0-35.0); MEAN CORPUSCULAR VOLUME 91.2 fL (80.0-100.0); MEAN PLATELET VOLUME 7.8 fL (7.4-11.0); MONOCYTES # (AUTO) 0.9 x10^3/uL (0.3-0.8); MONOCYTES % (AUTO) 9.1 % (0.0-13.0); NEUTROPHILS # (AUTO) 7.1 x10^3/uL (2.2-4.8); NEUTROPHILS % (AUTO) 69.7 % (42.0-75.0); PLATELET COUNT 327 X10^3/uL (150.0-450.0); RED BLOOD COUNT 3.99 X10^6/uL (3.5-5.4); RED CELL DISTRIBUTION WIDTH 17.2 % (11.6-16.5); WHITE BLOOD COUNT 10.1 X10^3/uL (3.6-10.0)
[2024-06-28 06:38] LABS: ALANINE AMINOTRANSFERASE 13 Units/L (12-78); ALBUMIN 2.4 g/dL (3.4-5.0); ALKALINE PHOSPHATASE 97 Units/L (46-116); ASPARTATE AMINO TRANSFERASE 14 Units/L (15-37); BLOOD UREA NITROGEN 6 mg/dL (7-18); CALCIUM 8.6 mg/dL (8.5-10.1); CHLORIDE 96 mmol/L (98-107); COR CA(FOR HYPOALB) 9.9 mg/dL (8.5-10.1); COR NA(FOR HYPERGLY) 137 mmol/L (136-145); CREATININE 0.42 mg/dL (0.55-1.02); GLUCOSE 129 mg/dL (65-99); MAGNESIUM 1.9 mg/dL (2.0-2.9); POTASSIUM 3.8 mmol/L (3.5-5.1); SODIUM 136 mmol/L (136-145); TOTAL PROTEIN 6.6 g/dL (6.4-8.2); eGFR NON BLACK RACES > 60 (>60)
[2024-06-28] MEDS ORDERED: CONSULT PHARMACY - POTASSIUM & MAGNESIUM XX SCH (07:00)
--- NOTE | 2024-06-28 08:52 | NOTE.SOAP ---
Soap Note Note for Day of Date of Exam: 06/27/24 Subjective Data Subjective Data: No overnight issues. Seen with nurse for AM rounds. Pt still reports unsteadiness when out of bed and fear of falling. She wants to go home, but agrees that she would not be safe there. Objective Data Objective Data: WD, WN, elderly female in NAD. Heart regular rate and rhythm. Lungs clear. Speech is strong. Mood affect appropriate. Head NCAT. Assessment Assessment: 1. Cellulitis of sacral region with decubitus ulcer. No changes today. 2. UTI, acute. Continue current. 3. Simple chronic bronchitis, stable/chronic. continue nebs. 4: Acquired leg length discrepancy, chronic. PT/OT. Needs rehab placement. Plan Plan: deescalate abx
[2024-06-28] MEDS: LOVENOX INJ 40 MG SYR SC SCH (09:43)
[2024-06-28] MEDS: K-DUR TAB 20 MEQ PO SCH (09:44)
[2024-06-28] MEDS: MAG-OX TAB PO SCH (09:44)
[2024-06-29 05:46] LABS: BASOPHILS # (AUTO) 0.2 X10^3/uL (0.0-0.1); BASOPHILS % (AUTO) 1.4 % (0.2-1.0); EOSINOPHILS # (AUTO) 0.5 x10^3/uL (0.0-0.2); EOSINOPHILS % (AUTO) 4.1 % (0.9-2.9); HEMATOCRIT 37.1 % (36.0-47.0); HEMOGLOBIN 12.2 g/dL (12.0-16.0); LYMPHOCYTES # (AUTO) 2.5 X10^3/uL (1.3-2.9); LYMPHOCYTES % (AUTO) 19.6 % (21.0-51.0); MEAN CORPUSCULAR HEMOGLOBIN 29.8 pg (27.0-34.0); MEAN CORPUSCULAR HGB CONC 32.9 g/dL (33.0-35.0); MEAN CORPUSCULAR VOLUME 90.5 fL (80.0-100.0); MEAN PLATELET VOLUME 7.9 fL (7.4-11.0); MONOCYTES # (AUTO) 1.1 x10^3/uL (0.3-0.8); MONOCYTES % (AUTO) 8.4 % (0.0-13.0); NEUTROPHILS # (AUTO) 8.6 x10^3/uL (2.2-4.8); NEUTROPHILS % (AUTO) 66.5 % (42.0-75.0); PLATELET COUNT 332 X10^3/uL (150.0-450.0); RED CELL DISTRIBUTION WIDTH 16.7 % (11.6-16.5)
[2024-06-29 06:00] LABS: ALANINE AMINOTRANSFERASE 11 Units/L (12-78); ALBUMIN 2.5 g/dL (3.4-5.0); ALKALINE PHOSPHATASE 93 Units/L (46-116); ASPARTATE AMINO TRANSFERASE 13 Units/L (15-37); BLOOD UREA NITROGEN 6 mg/dL (7-18); CALCIUM 8.7 mg/dL (8.5-10.1); CARBON DIOXIDE 38.1 mmol/L (21-32); CHLORIDE 99 mmol/L (98-107); COR CA(FOR HYPOALB) 9.9 mg/dL (8.5-10.1); CREATININE 0.38 mg/dL (0.55-1.02); GLUCOSE 105 mg/dL (65-99); SODIUM 137 mmol/L (136-145); TOTAL PROTEIN 6.8 g/dL (6.4-8.2); eGFR NON BLACK RACES > 60 (>60)
[2024-06-29 06:34] LABS: WHITE BLOOD COUNT 13.8 X10^3/uL (3.6-10.0)
[2024-06-29 06:35] LABS: ANISOCYTOSIS SLIGHT; PLATELET MORPHOLOGY COMMENT NORMAL (NORMAL)
[2024-06-29 16:32] VITALS: BP 136/78; PULSE 95; RESP 20; TEMP 98.1; O2SAT 96
== END 2024-06-29 17:40 | disposition home health service (06) ==
LOC: SUPCPDRO → MED/SURG 15:35 → ER 15:35 → MED/SURG 21:07
PROVIDERS: ADMIT Family Medicine; ATTEND Obstetrics & Gynecology Obstetrics
DX: N17.8 Other acute kidney failure; N30.00 Acute cystitis without hematuria; L89.309 Pressure ulcer of unspecified buttock, unspecified stage; L03.312 Cellulitis of back [any part except buttock and flank]; L89.621 Pressure ulcer of left heel, stage 1; J96.12 Chronic respiratory failure with hypercapnia; J96.11 Chronic respiratory failure with hypoxia; I10 Essential (primary) hypertension; Z59.82 Transportation insecurity; J44.9 Chronic obstructive pulmonary disease, unspecified; E83.42 Hypomagnesemia; R62.7 Adult failure to thrive; R53.1 Weakness; R26.89 Other abnormalities of gait and mobility; E78.5 Hyperlipidemia, unspecified; R13.12 Dysphagia, oropharyngeal phase; E86.0 Dehydration; E87.1 Hypo-osmolality and hyponatremia